=== PATIENT | male | born 1980 | race Caucasian/White ===

== ENCOUNTER 2016-06-27 16:40 | Emergency (ER) | payer OTHER ==
[~2016-06-27] VITALS: Ht 185.4 cm; Wt 133.1 kg
[~2016-06-27 16:40] MED LIST: BUPR8MIS UT; CITA40TA4 PO; CTP/1 PO; IBUP-1451 PO; METH1TAB12 PO; OXYC1TAB3 PO; SRQ100 PO; SRQ25 PO
[2016-06-27 17:10] VITALS: TEMP 36.5; Ht 185.4 cm; Wt 133.1 kg
[2016-06-27] MEDS ORDERED: ALBUT/IPRATROP 3MG/0.5MG NEB 3 ML VIAL INH ONE (17:30)
--- NOTE | 2016-06-27 17:54 | DIAGNOSTIC IMAGING REPORT ---
CHEST 2 VIEWS ROUTINE CLINICAL HISTORY: Cough. Wheezing. Asthma hx. COMPARISON STUDY: 07/02/2012 FINDINGS: The cardiac and mediastinal contours are normal. There is no evidence of focal pulmonary consolidation. There is no evidence of failure. No pleural effusions are visualized.[ IMPRESSION: No active disease in the chest. Electronically signed by: Ravindra Pratt M.D. 06/27/2016 5:52 PM Dictated Date/Time: 06/27/2016 5:52 PM
[2016-06-27] MEDS ORDERED: ALBUTEROL HFA 8 GM INHALER INH ONE (18:30)
[2016-06-27] MEDS ORDERED: PRED20TA2 PO (18:38)
[2016-06-27 18:46] VITALS: BP 108/79; PULSE 88; O2SAT 97
--- NOTE | 2016-06-28 16:15 | EMERGENCY ROOM VISIT NOTE ---
History First contact with patient: 17:15 Chief Complaint: COUGH Stated Complaint: WHEEZING,COUGHING,HEADACHE Nursing Triage Summary: Patient ambulatory to triage, states "I started getting sick on Friday with a runny nose and scratchy throat. I then started coughing on Friday and am bringing up yellow colored phlegm. I am using mucinex but it's not helping much. I have an asthma history and have been wheezing a lot. My chest is tight at times." History of Present Illness The patient is a 35 year old male who presents to the Emergency Room with complaints of coughing and wheezing over the past 6 days. The patient has a history of asthma and ran out of his albuterol inhaler. His inhaler was mildly helping his symptoms. He does not have a fever and has been able to mobilize mucus while using Mucinex at home. Patient does have tightness in his chest but not distinct chest pain. He will have a headache with his cough. He does not have other symptoms. Review of Systems More than 10 systems were reviewed and otherwise negative with the exception of history of present illness. Past Medical/Surgical History Medical Problems: (1) ASTHMA, UNSPECIFIED (2) Depression (3) Hallucinations, visual (4) HTN (hypertension) (5) Noncompliance (6) Noncompliance with medication regimen (7) Opioid Dependence-Unspec (8) PNEUMONIA, ORGANISM NOS Family History Cancer Diabetes mellitus Heart disease Hypertension Social History Smoking Status: Current Every Day Smoker Alcohol Use: none Drug Use: none Marital Status: single Housing Status: lives with significant other Occupation Status: employed Current/Historical Medications Scheduled Buprenorphine Hcl-Naloxone Hcl (Suboxone 8-2 Mg), 1 DOSE UT DAILY Citalopram (Citalopram Hydrobromide), 40 MG PO QAM Methylphenidate Hcl (Ritalin), 20 MG PO BID Prednisone (Prednisone Tab), 0 PO DAILY Quetiapine Fumarate (Quetiapine Fumarate), 100 MG PO HS Quetiapine Fumarate (Quetiapine Fumarate), 25 MG PO HS Allergies Coded Allergies: Sulfisoxazole (Unverified Allergy, Mild, ALLERGY, 06/27/16) Carbinoxamine (Unverified Allergy, Unknown, /, 06/27/16) Erythromycin (Unverified Allergy, Unknown, UNKNOWN, 06/27/16) Pseudoephedrine (Unverified Allergy, Unknown, /, 06/27/16) Zolpidem (Unverified Allergy, Unknown, HALLUCINATIONS, 06/27/16) Uncoded Allergies: RONDAX (Allergy, Unknown, UNKNOWN, 02/10/14) Physical Exam Vital Signs Date Time Temp Pulse Resp B/P Pulse Ox O2 Delivery O2 Flow Rate FiO2 06/27/16 18:46 88 18 108/79 97 Room Air 06/27/16 17:10 96 Room Air 06/27/16 17:10 36.5 78 18 138/88 95 Room Air Pain Rating (0-10): 0 Physical Exam VITALS: Vitals are noted on the nurse's note and reviewed by myself. Vital signs stable. GENERAL: Well-developed, well-nourished, white male, who is in no acute distress and resting comfortably. Patient is cooperative with the examination. HEAD: Normocephalic atraumatic. HEART: Regular rate and rhythm without murmurs gallops or rubs. LUNGS: Diffuse wheezing and rhonchi heard throughout. No crackles or accessory muscle use. ABDOMEN: Positive normal bowel sounds x 4. Soft, nontender, without masses or organomegaly. No guarding or rebound tenderness. MUSCULOSKELETAL: No muscle atrophy, erythema, or edema noted. Full range of motion without joint tenderness in all extremities. Medical Decision & Procedures ER Provider Diagnostic Interpretation: CHEST 2 VIEWS ROUTINE CLINICAL HISTORY: Cough. Wheezing. Asthma hx. COMPARISON STUDY: 07/02/2012 FINDINGS: The cardiac and mediastinal contours are normal. There is no evidence of focal pulmonary consolidation. There is no evidence of failure. No pleural effusions are visualized.[ IMPRESSION: No active disease in the chest. Medications Administered Medications (Trade) Dose Ordered Sig/Salvador Route Start Time Stop Time Status Last Admin Dose Admin Prednisone (PredniSONE TAB) 60 mg NOW STAT PO 06/27/16 17:25 06/27/16 17:26 DC 06/27/16 17:54 60 MG Albuterol/ Ipratropium (Duoneb) 3 ml NOW ONCE INH 06/27/16 17:30 06/27/16 17:31 DC 06/27/16 17:54 3 ML Albuterol (Ventolin Hfa Inhaler) 2 puffs NOW ONCE INH 06/27/16 18:30 06/27/16 18:31 DC 06/27/16 18:42 2 PUFFS ED Course Physical exam and history were performed. Nursing notes and EMR were reviewed. Patient appears to have symptoms consistent with an asthma exacerbation. The patient is not febrile, and does not appear in acute respiratory distress. He was provided prednisone and a DuoNeb here in the department. Chest x-ray was performed and is not show finding such as acute pneumonia. Overall the patient had significant improvement of his breathing after steroids and a DuoNeb. Repeat lung exam showed significantly improved air exchange with decreased wheezing and rhonchi. He does have some persistent rhonchi at the end of inspiration. The patient will be given a home pack of albuterol inhaler , which she is to continue using. He will also be provided a course of prednisone. I recommended that he follow with his primary care physician for further care and management. He was otherwise invited back to the ER with any new, worsening, or concerning symptoms. The chart was completed utilizing [employer] Voice Recognition Software. Grammatical errors, random word insertions, pronoun errors, and incomplete sentences are an occasional consequence of this system due to software limitations, ambient noise, and hardware issues. Any formal questions or concerns about the content, text, or information contained within the body of this dictation should be directly addressed to the provider for clarification. . Medical Decision Differential diagnosis: Etiologies such as infections, reactive airway disease, pneumonia, pneumothorax , COPD, CHF, cardiac ischemia, pulmonary embolism, musculoskeletal, gastrointestinal, as well as others were entertained. Impression Primary Impression: Acute asthma exacerbation Departure Information Dispostion Home / Self-Care Condition GOOD Prescriptions Prednisone (Prednisone Tab) 20 Mg Tab 0 PO DAILY, #18 TAB 3 DAILY FOR 3 DAYS, THEN 2 DAILY FOR 3 DAYS, THEN 1 DAILY FOR 3 DAYS. Prov: Yadiel Zuniga PA-C 06/27/16 Forms HOME CARE DOCUMENTATION FORM, IMPORTANT VISIT INFORMATION Patient Instructions My [facility] Additional Instructions You were seen and evaluated today on an emergency basis only. This is not a substitute for, or an effort to provide, complete comprehensive medical care. It is not possible to recognize and treat all injuries or illnesses in a single emergency department visit. For this reason it is recommended that you followup with your primary care physician in the next 3-4 days for recheck of your condition. Continue your albuterol inhaler and use your home nebulizers as prescribed. Take prednisone as prescribed. You are welcome to return to the emergency department anytime with new, worsening, or concerning symptoms.
== END 2016-06-27 18:48 | disposition home or self-care (01) ==
LOC: C.EDB 16:41 → C.EDD 18:48
DX: J45.901 Unspecified asthma with (acute) exacerbation (principal); I10 Essential (primary) hypertension; F32.9 Major depressive disorder, single episode, unspecified; F17.200 Nicotine dependence, unspecified, uncomplicated; Z83.3 Family history of diabetes mellitus; Z82.49 Family history of ischemic heart disease and other diseases of the circulatory system